=== PATIENT | male | born 1960 | race Caucasian/White ===

== ENCOUNTER → 2017-01-15 | Outpatient (CLI) | payer OTHER ==
--- NOTE | 2017-01-19 14:00 | CODING QUERY NO DIAGNOSIS ---
TREATMENT RENDERED WITHOUT A DIAGNOSIS To promote full compliance with coding requirements relating to patient care, physician participation is requested in all cases of certified medical coder uncertainty. Please assist us with providing a diagnosis/symptom for the test(s) below: A diagnosis/symptom was not documented on your Order. A valid diagnosis/symptom is required to bill all insurances. Please remember that we are unable to code a diagnosis of rule out, probable, possible, questionable, or suspected. DATE OF SERVICE: 01/15/17 Tests that require a diagnosis: * GRAM STAIN, DIRECT SMEAR DIAGNOSIS: * CULTURE, BACTERIAL, ANY SOURCE DIAGNOSIS: Provider Signature: Date: Thank you Romana Odonnell [facility] Information Management Once completed, please kindly fax back to [phone] For questions please call [phone]
== END | disposition home or self-care (01) ==
LOC: C.LABSPEC 16:49
PROVIDERS: ATTEND Orthopaedic Surgery
DX: S61.218A Laceration without foreign body of other finger without damage to nail, initial encounter (principal); X58.XXXA Exposure to other specified factors, initial encounter